=== PATIENT | male | born 1995 | race Caucasian/White ===

== ENCOUNTER 2018-08-01 21:42 | Emergency (ER) | payer OTHER ==
--- NOTE | 2018-08-01 22:07 | ED ---
Lower Extremity Injury HPI - General Chief Complaint: Extremity Injury, Lower Stated Complaint: Foot Injury Time Seen by Provider: 08/01/18 21:56 Source: patient, family Mode of arrival: ambulatory Limitations: no limitations - History of Present Illness Initial Comments: Patient is a 22-year-old male presenting to the emergency Department with complaints of right foot pain 2 hours. Patient states he was running while playing softball and felt a pop on the bottom of his right foot. Patient denies rolling his ankle. Patient has pain when bearing weight. No previous history of right foot or ankle injury. No other complaints at this time. - Related Data Home Medications Medication Instructions Recorded Confirmed No Known Home Medications 08/01/18 08/01/18 Allergies Allergy/AdvReac Type Severity Reaction Status Date / Time No Known Allergies Allergy Unverified 08/01/18 22:05 Review of Systems ROS Statement: Those systems with pertinent positive or pertinent negative responses have been documented in the HPI. ROS Other: All systems not noted in ROS Statement are negative. Past Medical History Past Medical History: No Reported History History of Any Multi-Drug Resistant Organisms: None Reported Past Surgical History: No Surgical Hx Reported Past Psychological History: No Psychological Hx Reported Smoking Status: Never smoker Past Alcohol Use History: None Reported Past Drug Use History: None Reported General Exam - General Exam Comments Initial Comments: GENERAL: Well-appearing, well-nourished and in no acute distress. HEAD: Atraumatic, normocephalic. EYES: Pupils equal round and reactive to light, extraocular movements intact, sclera anicteric, conjunctiva are normal. ENT: TMs normal, nares patent, oropharynx clear without exudates. Moist mucous membranes. NECK: Normal range of motion, supple without lymphadenopathy or JVD. LUNGS: Breath sounds clear to auscultation bilaterally and equal. No wheezes rales or rhonchi. HEART: Regular rate and rhythm without murmurs, rubs or gallops. ABDOMEN: Soft, nontender, normoactive bowel sounds. No guarding, no rebound. No masses appreciated. : Deferred EXTREMITIES: Pain on the plantar aspect of the right foot, medial. Pain with palpation of the middle portion of the plantar fascia. Mild swelling present. No bruising, erythema. Normal range of motion of the right ankle and toes. NEUROLOGICAL: Cranial nerves II through XII grossly intact. Normal speech, normal gait. PSYCH: Normal mood, normal affect. SKIN: Warm, Dry, normal turgor, no rashes or lesions noted. Limitations: no limitations Course Vital Signs 08/01/18 08/01/18 21:43 22:55 Temperature 99 F 98.7 F Pulse Rate 98 91 Respiratory 20 16 Rate Blood Pressure 143/88 138/80 O2 Sat by Pulse 98 98 Oximetry Medical Decision Making - Medical Decision Making She is a 22-year-old male presenting with right foot pain 2 hours. Patient states he was running while playing softball and felt a pop on the bottom of his right foot. Patient has tenderness on the plantar fascia. No tenderness on the dorsal aspect of the foot. X-ray of the right foot shows no acute fractures. Discussed with patient has is likely an injury to the plantar fascia. Patient be discharged home and will follow up with orthopedics if pain continues past 2 weeks. Return parameters were discussed. Disposition Clinical Impression: Right foot injury, Right foot pain Disposition: HOME SELF-CARE Condition: Stable Instructions (If sedation given, give patient instructions): Plantar Fasciitis Exercises (ED) Additional Instructions: Please return to the Emergency Department if symptoms worsen or any other concer ns. Use ice, Motrin, gentle stretches. Follow-up with orthopedics in 2 weeks if symptoms continue and no improvement. Is patient prescribed a controlled substance at d/c from ED?: No Referrals: None,Stated [Primary Care Provider] - 1-2 days
--- NOTE | 2018-08-01 22:31 | XR ---
EXAM: XR Right Foot Complete, 3 or More Views CLINICAL HISTORY: Pain and popping sensation in the arch of RT foot while running. Shielded. No previous report. TECHNIQUE: Frontal, lateral and oblique views of the right foot. COMPARISON: No relevant prior studies available. FINDINGS: Bones/joints: Unremarkable. No acute fracture. No dislocation. Soft tissues: Unremarkable. No radiopaque foreign body. IMPRESSION: Normal right foot x-rays.
[2018-08-01 22:57] VITALS: BP 138/80; PULSE 91; RESP 16; TEMP 98.7
== END 2018-08-01 22:55 | disposition home or self-care (01) ==
LOC: EC 21:42
DX: S99.921A Unspecified injury of right foot, initial encounter (principal); Y93.02 Activity, running; Y92.89 Other specified places as the place of occurrence of the external cause
CPT/HCPCS: 99283